=== PATIENT | male | born 1945 | race Caucasian/White ===

== ENCOUNTER 2016-03-07 04:44 | Emergency (ER) | payer MEDICARE, BC ==
[~2016-03-07] VITALS: Ht 188 cm; Wt 63.6 kg
[~2016-03-07 04:44] MED LIST: ANTIVERT 25MG25 MG PO; CEPHALEXIN500 M1 PO; IBUPROFEN 200200 MG PO; NO HOME MEDICATIONS; VALIUM 5MG T5 MG/TAB PO
[2016-03-07 04:58] VITALS: TEMP 98.1
[2016-03-07] MEDS ORDERED: SENOKOT S 50 MG1 TAB PO (05:09)
[2016-03-07] MEDS ORDERED: MIRALAX PA17 GM/Dose PO (05:10)
[2016-03-07] MEDS ORDERED: LEVSIN 0.10.125 MG/T PO (05:10)
[2016-03-07] MEDS ORDERED: DITROPAN XL10 MG PO (05:10)
[2016-03-07] MEDS ORDERED: LEVAQUIN 2250 MG/TAB PO (05:11)
[2016-03-07] MEDS ORDERED: TOPROL XL 25MG25 MG PO (05:11)
[2016-03-07 05:19] LABS: BASO % 0.1 % (0.0-2.0); GRAN # 5.4 (1.4-6.5); GRAN % 81.1 % (42.2-75.2); LYMPH # 0.8 (1.2-3.4); LYMPH % 11.2 % (20.0-51.0); MEAN CELL VOLUME 87 fl (80.0-100.0); MEAN CORPUSCULAR HGB CONC 33 g/dl (33.0-37.0); MEAN PLATELET VOLUME 9.4 fl (7.4-10.4); MONO # 0.5 (0.1-0.6); MONO % 7.3 % (1.7-9.3); PLATELET COUNT 185 K/mm3 (130-400); RED BLOOD COUNT 4.08 M/mm3 (4.20-5.60); REDCELL DISTRIBUTION WIDTH-CV 13.8 % (11.5-14.5); WHITE BLOOD COUNT 6.7 K/mm3 (4.8-10.8)
[2016-03-07 05:23] LABS: HEMATOCRIT 35.4 % (42.0-52.0); HEMOGLOBIN 11.7 g/dl (13.5-18.0); MEAN CORPUSCULAR HEMOGLOBIN 29 pg (27.0-31.0)
[2016-03-07 05:29] LABS: INR 1.1 (0.8-3.0); PROTHROMBIN TIME 12.7 SECONDS (9.7-12.8)
[2016-03-07 05:32] LABS: ADJUSTED CALCIUM 9.3 mg/dL (8.4-10.2); ALBUMIN 3.7 gm/dL (3.5-5.0); BILIRUBIN,TOTAL 1.2 mg/dL (0.0-1.0); CALCIUM 9.1 mg/dL (8.4-10.2); CREATININE, serum 0.72 mg/dL (0.66-1.25); PARTIAL THROMBOPLASTIN TIME 27.1 SECONDS (26.0-37.0); POTASSIUM 3.4 mmol/L (3.4-5.0); TOTAL PROTEIN 6.8 gm/dL (6.4-8.2)
[2016-03-07] MEDS ORDERED: LOPRESSOR 225 MG/TAB PO (06:29)
[2016-03-07 06:30] VITALS: BP 113/70; PULSE 67
== END 2016-03-07 06:43 | disposition home or self-care (01) ==
LOC: COL.ER 04:44
PROVIDERS: Emergency Medicine
DX: I47.1 Supraventricular tachycardia (principal); Z98.890 Other specified postprocedural states; Z90.79 Acquired absence of other genital organ(s)

== ENCOUNTER → 2019-06-26 | Outpatient (CLI) | payer MEDICARE, BC ==
[~2019-06-26] MED LIST changes: +DITROPAN XL10 MG PO; +LEVAQUIN 2250 MG/TAB PO; +LEVSIN 0.10.125 MG/T PO; +LOPRESSOR 225 MG/TAB PO; +MIRALAX PA17 GM/Dose PO; +SENOKOT S 50 MG1 TAB PO; +TOPROL XL 25MG25 MG PO
== END ==
LOC: COL.VAS 13:43
DX: M79.89 Other specified soft tissue disorders (principal)

== ENCOUNTER → 2021-06-22 | Outpatient (CLI) | payer MEDICARE, BC | LOC: COL.RAD 13:05 | DX: M16.11 Unilateral primary osteoarthritis, right hip (principal) | CPT/HCPCS: J3301; Q9967 ==